=== PATIENT | female | born 1975 | race Caucasian/White ===

== ENCOUNTER → 2018-05-25 | Outpatient (CLI) | payer OTHER ==
--- NOTE | 2018-05-25 12:39 | Diagnostic Imaging Report ---
INDICATION: Lump in the left supraclavicular region. FINDINGS: Sonographic interrogation of the area of lump in the left supraclavicular region was performed. There is a circumscribed ovoid homogeneously hypoechoic mass at this location measuring 3.3 x 0.8 x 3.5 cm. No internal vascularity is seen. This has the appearance of a lipoma. No other abnormalities are seen. IMPRESSION: Probable lipoma at the area of palpable abnormality in the supraclavicular left neck. Continued followup is recommended to confirm stability. Dictated by: Dictated on workstation # [id number]
== END ==
LOC: RAD 10:49
PROVIDERS: ATTEND Nurse Practitioner Family
DX: D17.0 Benign lipomatous neoplasm of skin and subcutaneous tissue of head, face and neck (principal)
CPT/HCPCS: 76536

== ENCOUNTER 2018-06-22 09:30 | Outpatient (CLI) | payer OTHER ==
[~2018-06-22] VITALS: Ht 167.6 cm; Wt 52.2 kg
== END 2018-06-22 09:32 | disposition home or self-care (01) ==
LOC: PREOP 09:30
PROVIDERS: ATTEND Surgery
DX: Z01.818 Encounter for other preprocedural examination (principal)

== ENCOUNTER 2018-06-23 07:40 | Day surgery (SDC) | payer OTHER ==
[~2018-06-23] VITALS: Ht 167.6 cm; Wt 52.2 kg
[2018-06-23] MEDS ORDERED: ceFAZolin 1 GM/NS 50 ML IVPB IV ONE ×2 (08:30)
[2018-06-23 08:45] VITALS: BP 98/61
[2018-06-23] MEDS ORDERED: ceFAZolin INJECTION 1,000 MG in NS (IVPB) 50 ML IV ONE (08:45)
[2018-06-23] MEDS: LACTATED RINGERS 1,000 ML IV PRN ×2 (08:48→09:37)
[2018-06-23] MEDS ORDERED: BUPIVACAINE 0.5% 30 ML (SENSORCAINE) VIAL ONE (08:57)
[2018-06-23] MEDS ORDERED: LIDOCAINE 1% INJ 20 ML 20 ML VIAL ONE (08:57)
[2018-06-23] MEDS ORDERED: SEVOFLURANE (ULTANE) 15 ML INHAL SOLN ONE (09:05)
[2018-06-23] MEDS ORDERED: ONDANSETRON 4 MG/2 ML (SDV) Z0FRAN ONE (09:05)
[2018-06-23] MEDS ORDERED: LIDOCAINE PF 2% 5 ML (XYLOCAINE) VIAL ONE (09:05)
[2018-06-23] MEDS ORDERED: DEXAMETHASONE 10 MG/ML (DECADRON) 1 ML VIAL ONE (09:05)
[2018-06-23] MEDS ORDERED: proPOfol 200 MG/20 ML (DIPRIVAN) VIAL IV ONE (09:05)
[2018-06-23] MEDS ORDERED: MIDAZOLAM 2 MG/2 ML (VERSED) VIAL ONE (09:05)
[2018-06-23] MEDS ORDERED: fentaNYL INJECTION 100 MCG/2 ML AMP ONE (09:05)
--- NOTE | 2018-06-23 09:13 | Progress Note-Pre Operative ---
Pre-Operative Progress Note H&P Reviewed The H&P was reviewed, patient examined and no changes noted. Date Seen by Provider: Jun 23, 2018 Time Seen by Provider: 09:12 Date H&P Reviewed: Jun 23, 2018 Time H&P Reviewed: 09:12 Pre-Operative Diagnosis: left supraclavicular mass INGE OCONNOR DO Jun 23, 2018 09:13
[2018-06-23 10:50] VITALS: BP_SYST 88; BP_SYST 90; BP_DIAS 51; BP_DIAS 57
[2018-06-23 11:20] VITALS: BP 104/63
--- NOTE | 2018-06-23 11:21 | Progress Note-Post Operative ---
Post-Operative Progess Note Surgeon (s)/Anvil Worker (s) Surgeon INGE OCONNOR DO Anvil Worker: na Pre-Operative Diagnosis left supraclavicular mass Post-Operative Diagnosis same Procedure & Operative Findings Date of Procedure 06/23/18 Procedure Performed/Findings excision left supraclavicular mass Anesthesia Type gen Estimated Blood Loss Estimated blood loss (mL): min Specimens/Packing Specimens Removed supraclavicular mass INGE OCONNOR DO Jun 23, 2018 11:21
[2018-06-23] MEDS ORDERED: HYDROcodone/APAP 5 MG/325 MG (LORTAB) TAB PO ONE (11:30)
[2018-06-23 11:50] VITALS: BP 103/62
[2018-06-23 12:00] VITALS: BP 103/62
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
--- NOTE | 2018-06-23 13:30 | Anesthesia-General Post-Op ---
General Patient Condition Mental Status/LOC: Same as Preop Cardiovascular: Satisfactory Nausea/Vomiting: Absent Respiratory: Satisfactory Pain: Controlled Complications: Absent Post Op Complications Complications None Follow Up Care/Instructions Patient Instructions None needed. Anesthesia/Patient Condition Patient Condition Patient is doing well, no complaints, stable vital signs, no apparent adverse anesthesia problems. No complications reported per nursing. PAUL GANDHI CRNA Jun 23, 2018 13:30
--- NOTE | 2018-06-23 15:26 | OPERATIVE REPORT ---
DATE OF SERVICE: 06/23/2018 PREOPERATIVE DIAGNOSIS: Left supraclavicular mass. POSTOPERATIVE DIAGNOSIS: Left supraclavicular mass. PROCEDURE PERFORMED: Excision of left supraclavicular mass. SURGEON: Inge Mcfarland DO. ANESTHESIA: General. ESTIMATED BLOOD LOSS: Minimal. COMPLICATIONS: None. SPECIMEN: Supraclavicular mass. INDICATIONS: The patient is a 42-year-old female with a left supraclavicular mass. She understands risks and benefits of procedure and wished to proceed with procedure. Consent was signed in the chart. DESCRIPTION OF PROCEDURE: The patient was taken to the operating suite. She was prepped and draped in sterile fashion. Surgical pause was performed. Local anesthetic was used to infiltrate the area. A 15-blade scalpel was used to make incision over the palpable mass. Cautery was used to dissect down through the subcutaneous tissues. In the deep subcutaneous tissues, the masses present with appearance of a lipoma. This was then dissected around and removed in its entirety. Hemostasis was achieved. The subcutaneous tissues were then reapproximated using 3-0 Vicryl. Skin was then closed using 4-0 Vicryl in a running subcuticular fashion. The area was washed and dried and Skin Affix was placed over the incision. The patient tolerated the procedure well without any complications. She was taken to the recovery room in stable condition. Job ID: [id number] DocumentID: [id number] Dictated Date: 06/23/2018 11:24:23 Accreditation Specialist Date: 06/23/2018 15:25:02 Dictated By: INGE MCFARLAND DO
== END 2018-06-23 12:00 | disposition home or self-care (01) ==
LOC: SDC 07:40
PROVIDERS: ATTEND Surgery
DX: D17.1 Benign lipomatous neoplasm of skin and subcutaneous tissue of trunk (principal); F41.0 Panic disorder [episodic paroxysmal anxiety]; Z11.2 Encounter for screening for other bacterial diseases; Z88.2 Allergy status to sulfonamides; Z88.5 Allergy status to narcotic agent; Z87.891 Personal history of nicotine dependence
CPT/HCPCS: 84703; 87081; 88304

== ENCOUNTER → 2020-04-18 | Outpatient (CLI) | payer OTHER ==
--- NOTE | 2020-04-18 10:57 | Diagnostic Imaging Report ---
INDICATION: Palpable lump in the right breast. Correlation is made with the diagnostic mammogram performed earlier today. Sonographic interrogation of the area of palpable lump right breast was performed. This corresponds to the 4-6 o'clock location. No sonographic abnormality is identified. No solid or cystic mass is detected. IMPRESSION: BI-RADS Category 1 No sonographic abnormalities identified. Continued close clinical and self breast exam is recommended to confirm stability of the palpable abnormality. ACR BI-RADS Category 1: Negative. Result letter will be mailed to the patient. Note: At least 10% of breast cancer is not imaged by mammography. Dictated by: Dictated on workstation # [id number]
--- NOTE | 2020-04-18 15:55 | Diagnostic Imaging Report ---
Indication: Palpable lump in the inner right breast. No prior mammograms are available for comparison. 2-D and 3-D bilateral diagnostic mammography was performed with CAD. Scattered fibroglandular densities are identified bilaterally. A BB marker was placed at the area of palpable abnormality in the lower inner right breast. No underlying mass is seen. Remainder of the breasts are heterogeneous but no discrete mass is detected. No suspicious microcalcifications are seen. Axillae are unremarkable. Impression: BI-RADS Category 0 No mammographic features suspicious for malignancy are identified. Even so, directed sonographic interrogation of the area of palpable abnormality in the right breast is recommended and will be performed today. ACR BI-RADS Category 0: Incomplete. (Needs additional imaging evaluation). Result letter will be mailed to the patient. Note: At least 10% of breast cancer is not imaged by mammography. Dictated by: Dictated on workstation # [id number]
== END ==
LOC: RAD 09:00
PROVIDERS: ATTEND Nurse Practitioner Family
DX: N63.10 Unspecified lump in the right breast, unspecified quadrant (principal)
CPT/HCPCS: 76642; 77066; G0279; 77062